=== PATIENT | male | born 1995 | race Caucasian/White ===

== ENCOUNTER 2017-03-28 12:35 | Observation (INO) | payer OTHER ==
[~2017-03-28] VITALS: Ht 170.2 cm; Wt 75.0 kg
[2017-03-28 13:38] VITALS: BP 132/76
[2017-03-28] MEDS ORDERED: LACTATED RINGERS 1,000 ML IV SCH (13:43)
[2017-03-28] MEDS ORDERED: ANTIBIOTIC PO (14:08)
[2017-03-28] MEDS ORDERED: OXYC-302 PO (14:08)
[2017-03-28 14:13] LABS: BASOPHILS # (AUTO) 0.05 x10^3/uL (0-0.1); BASOPHILS % (AUTO) 1 % (0-1); EOSINOPHILS # (AUTO) 0.18 x10^3/uL (0-0.4); EOSINOPHILS % (AUTO) 2 % (1-7); LYMPHOCYTES # (AUTO) 1.69 x10^3/uL (1-3.4); LYMPHOCYTES % (AUTO) 22 % (22-44); MD NO; MEAN CORPUSCULAR HEMOGLOBIN 28.6 pg (27.5-34.5); MEAN CORPUSCULAR HGB CONC 33.5 g/dL (33.2-36.2); MEAN CORPUSCULAR VOLUME 85.3 fL (81-97); MEAN PLATELET VOLUME 9.5 fL (7.4-10.4); MONOCYTES % (AUTO) 5 % (2-9); NEUTROPHILS # (AUTO) 5.35 x10^3/uL (1.8-6.8); NEUTROPHILS % (AUTO) 70 % (42-75); PLATELET COUNT 236 x10^3/uL (130-400); RED BLOOD COUNT 5.29 x10^6/uL (4.38-5.82); RED CELL DISTRIBUTION WIDTH 12.7 % (9.4-14.8)
[2017-03-28 14:22] LABS: ANION GAP 8 mmol/L (5-15); CALCIUM 9.3 mg/dL (8.5-10.1); CHLORIDE 101 mmol/L (98-107); CREATININE 0.99 mg/dL (0.7-1.3)
[2017-03-28] MEDS ORDERED: BALANCED SALT OPHTH IRRIG SOLN 18ML ONE (14:47)
[2017-03-28] MEDS ORDERED: LIDOCAINE 1%, 50ML ONE (14:47)
[2017-03-28] MEDS ORDERED: MUPIROCIN OINT 2%, 22GM ONE (14:47)
[2017-03-28] MEDS ORDERED: EPINEPHRINE 1 MG/ML, 1ML ONE (14:47)
[2017-03-28] MEDS ORDERED: FENTANYL PF 250 MCG/5ML ONE (14:53)
[2017-03-28] MEDS ORDERED: MIDAZOLAM 1 MG/ML, 2ML ONE (14:53)
[2017-03-28] MEDS ORDERED: PROPOFOL 10 MG/ML, 20ML ONE (14:54)
[2017-03-28] MEDS ORDERED: ROCURONIUM 10 MG/ML,10ML ONE (14:55)
[2017-03-28] MEDS ORDERED: SODIUM CHLORIDE 0.9% PF 10ML ONE (15:09)
[2017-03-28] MEDS ORDERED: CEFAZOLIN 1,000 MG ONE ×2 (15:09)
[2017-03-28] MEDS ORDERED: ACETAMINOPHEN 325 MG TABLET PO PRN (15:30)
[2017-03-28] MEDS ORDERED: PROMETHAZINE 25 MG/ML, 1ML IV PRN (15:30)
[2017-03-28] MEDS ORDERED: MEPERIDINE/PF 25MG/0.5ML IVPush PRN (15:30)
[2017-03-28] MEDS ORDERED: LABETALOL 5MG/ML, 20ML IV PRN (15:30)
[2017-03-28] MEDS ORDERED: OXYcodone 5 MG/5 ML ORAL.SOL UDC PO PRN (15:30)
[2017-03-28] MEDS ORDERED: ONDANSETRON 2MG/ML, 2ML IVPush PRN (15:30)
[2017-03-28] MEDS ORDERED: hydrALAzine 20 MG/ML, 1ML IV PRN (15:30)
[2017-03-28] MEDS ORDERED: GLYCOPYRROLATE 0.4 MG/2 ML, 2ML ONE (15:36)
[2017-03-28] MEDS ORDERED: NEOSTIGMINE 1 MG/ML, 10ML ONE (15:36)
[2017-03-28] MEDS ORDERED: FENTANYL PF 100 MCG/2ML ONE ×2 (16:46→17:46)
[2017-03-28] MEDS ORDERED: HYDROmorphone 2 MG/ML, 1ML ONE (16:46)
[2017-03-28] MEDS: FENTANYL PF 100 MCG/2ML IV PRN ×2 (16:50→17:00)
[2017-03-28] MEDS: HYDROmorphone 1 MG/ML, 1ML IV PRN ×5 (16:55→17:45)
[2017-03-28] MEDS ORDERED: OXYcodone 5 MG/5 ML ORAL.SOL UDC ONE (17:33)
[2017-03-28] MEDS ORDERED: ACETAMINOPHEN 650 MG/20.3 ML UDC ONE (17:33)
[2017-03-28] MEDS ORDERED: PROMETHAZINE 25 MG/ML, 1ML ONE (17:46)
[2017-03-28] MEDS: LACTATED RINGERS 1,000 ML IV SCH (19:30)
[2017-03-28] MEDS: ONDANSETRON 2MG/ML, 2ML IVPush PRN (20:26)
[2017-03-28 20:30] VITALS: BP 121/79
[2017-03-28] MEDS: CEFAZOLIN PMX 2GM/50ML 50 ML IVPB SCH (23:07)
[2017-03-29 03:56] VITALS: BP 119/78
[2017-03-29] MEDS: LACTATED RINGERS 1,000 ML IV SCH ×2 (05:35→13:27)
[2017-03-29] MEDS: CEFAZOLIN PMX 2GM/50ML 50 ML IVPB SCH (07:26)
[2017-03-29 07:30] VITALS: BP 117/73
[2017-03-29] MEDS: ONDANSETRON 2MG/ML, 2ML IVPush PRN (08:43)
[2017-03-29 12:46] VITALS: BP 117/74
[2017-03-29] MEDS ORDERED: CEPH-368 PO (13:22)
[2017-03-29 14:37] VITALS: BP 107/75
== END 2017-03-29 14:40 | disposition home or self-care (01) ==
LOC: OR 12:35 → 4NOR 18:10 → OR 23:00
PROVIDERS: ADMIT Otolaryngology Facial Plastic Surgery; ATTEND Otolaryngology Facial Plastic Surgery
DX: S02.40EA Zygomatic fracture, right side, initial encounter for closed fracture (principal); S01.111A Laceration without foreign body of right eyelid and periocular area, initial encounter; X58.XXXA Exposure to other specified factors, initial encounter; Y93.89 Activity, other specified; Y92.89 Other specified places as the place of occurrence of the external cause; Y99.8 Other external cause status
CPT/HCPCS: 21365; 36415; 70486; 71045; 80048; 85025; 93005; 96365; 96375; 96376; C1713; G0378; J0171; J0690; J1170; J2250; J2405; J2704; J2710; J3010; J3490; J7120